=== PATIENT | female | born 1930 | race Caucasian/White ===

== ENCOUNTER → 2017-09-26 | Outpatient (CLI) | payer MEDICARE, BC ==
--- NOTE | 2017-09-26 14:44 | XR ---
"Left shoulder HISTORY: Trauma and pain 3 views of the left shoulder No comparisons Minimally displaced greater tuberosity fracture present at the proximal humerus. No evident dislocati on. Left lung apex as visualized is normal. IMPRESSION: Humeral fracture A [place] message has been communicated to Nelida Pritchett MD via the [email or web address] | Critical Result s Qmindertem on 09/26/2017 2:42 PM, Message ID [id number]."
== END | disposition home or self-care (01) ==
LOC: RADXRYALE 11:38
PROVIDERS: ATTEND Internal Medicine
DX: S42.302A Unspecified fracture of shaft of humerus, left arm, initial encounter for closed fracture (principal)